=== PATIENT | female | born 1960 | race African-American/Black ===

== ENCOUNTER 2017-08-10 17:36 | Inpatient (IN) | payer MEDICAID ==
[~2017-08-10] VITALS: Ht 175.3 cm; Wt 76.2 kg
[~2017-08-10 17:36] MED LIST: IOHEXOL-300 100 ML BOTTLE ONE; SODIUM CHLORIDE 0.9% 10ML VIAL ONE
[2017-08-10] MEDS ORDERED: SODIUM CHLORIDE 0.9% 1,000 ML IV ONE (18:46)
[2017-08-10] MEDS ORDERED: ONDANSETRON HCL 4MG/2ML VIAL IV STA (18:46)
[2017-08-10] MEDS ORDERED: MORPHINE SULFATE 4 MG/ML CPJ (NOT FOR IM USE) IV STA (18:46)
[2017-08-10] MEDS ORDERED: SODIUM CHLORIDE 0.9% 1000ML BAG (SEPSIS BOLUS) IV ONE (19:15)
[2017-08-10] MEDS ORDERED: ACETAMINOPHEN 325MG SUPP PR ONE (19:15)
[2017-08-10 19:17] LABS: BASOPHILS % 0.9 % (0.0-2.0); EOSINOPHILS % 0.1 % (0.0-5.0); HEMATOCRIT. 41.8 % (36.0-48.0); HEMOGLOBIN. 14.1 g/dL (12.0-16.0); LYMPHOCYTES % 9.2 % (20.0-50.0); MEAN CORPUSCULAR HEMOGLOBIN 28.9 pg (28.0-32.0); MEAN CORPUSCULAR VOLUME 85.8 fL (81.0-99.0); MEAN PLATELET VOLUME 8.2 fl (7.4-10.4); MONOCYTES % 10.8 % (2.0-8.0); PLATELET 209 x1000/uL (130-400); RED BLOOD CELL COUNT 4.87 mill/uL (4.2-5.4); RED CELL DISTRIBUTION WIDTH 13.8 % (11.6-14.6)
[2017-08-10 19:19] LABS: INR 1.1; PROTHROMBIN TIME 11.7 sec (9.4-11.6)
[2017-08-10 19:27] LABS: CARBON DIOXIDE 29 mEq/L (21-32); CHLORIDE 103 mEq/L (98-107)
[2017-08-10] MEDS ORDERED: ACETAMINOPHEN 500MG TABLET PO ONE (20:15)
[2017-08-10] MEDS ORDERED: PIPERACILLIN/TAZ 3.375G PREMIX 50 ML IV ONE (20:15)
[2017-08-10] MEDS ORDERED: LEVOFLOXACIN 500MG PREMIX 100 ML IV ONE (22:15)
[2017-08-10] MEDS ORDERED: CEFTRIAXONE 1 G PREMIX 50 ML IV ONE (22:15)
[2017-08-10 22:22] LABS: CLARITY URINE CLEAR (CLEAR); COLOR URINE YELLOW (YELLOW); GLUCOSE URINE NEGATIVE (NEGATIVE); KETONES URINE NEGATIVE (NEGATIVE); LEUKOCYTE ESTERASE URINE 2+ (NEGATIVE); NITRITE URINE POSITIVE (NEGATIVE); OCCULT BLOOD URINE TRACE (NEGATIVE); PH URINE 5.5 (4.5-8.0); PROTEIN URINE NEGATIVE (NEGATIVE); SPECIFIC GRAVITY URINE 1.046 (1.005-1.030)
[2017-08-10] MEDS ORDERED: ZOLPIDEM TARTRATE 5MG TABLET PO PRN (23:15)
[2017-08-10] MEDS ORDERED: DIPHENHYDRAMINE 50MG/ML VIAL IV PRN (23:15)
[2017-08-10] MEDS ORDERED: MAGNESIUM/ALUMINUM HYDROXIDE/SIMETHICONE 30ML UDC PO PRN (23:15)
[2017-08-10] MEDS ORDERED: NA PHOS,M-B/NA PHOS,DI-BA ENEMA 118ML PR PRN (23:15)
[2017-08-10] MEDS ORDERED: DOCUSATE SODIUM 100MG CAPSULE PO PRN (23:15)
[2017-08-10] MEDS ORDERED: GUAIFENESIN 200MG/10ML SUGAR FREE UDC PO PRN (23:15)
[2017-08-10] MEDS ORDERED: LORAZEPAM 2MG/ML CPJ IV PRN (23:15)
[2017-08-10] MEDS ORDERED: CLONIDINE 0.1MG TABLET PO PRN (23:15)
[2017-08-10] MEDS ORDERED: IPRATROPIUM/ALBUTEROL 0.5-3(2.5)MG/3ML NEB INH PRN (23:15)
[2017-08-10] MEDS ORDERED: ONDANSETRON HCL 4MG/2ML VIAL IV PRN (23:15)
[2017-08-11] VITALS (8 sets, daily range): BP systolic 107–138; BP diastolic 68–93
[2017-08-11] MEDS: KETOROLAC 15MG/ML VIAL IV PRN ×2 (00:58→17:49)
[2017-08-11] MEDS ORDERED: CEFTRIAXONE 1 G PREMIX 50 ML IV SCH (02:00)
[2017-08-11] MEDS ORDERED: LEVOFLOXACIN 500MG PREMIX 100 ML IV SCH (03:00)
[2017-08-11 09:27] LABS: *AMPHETAMINES SCREEN URINE NEGATIVE (NEGATIVE); *BARBITURATES SCREEN URINE NEGATIVE (NEGATIVE); *BENZODIAZEPINES SCREEN URINE NEGATIVE (NEGATIVE); *COCAINE SCREEN URINE NEGATIVE (NEGATIVE); CANNABINOID URINE SCREEN NEGATIVE (NEGATIVE); METHADONE URINE SCREEN NEGATIVE (NEGATIVE); OPIATES URINE SCREEN PRESUMTIVE POSITIVE (NEGATIVE); PHENCYCLIDINE URINE SCREEN NEGATIVE (NEGATIVE)
[2017-08-11] MEDS: ENOXAPARIN 40MG/0.4ML SYR SUBCUT SCH (09:36)
[2017-08-11] MEDS: FAMOTIDINE 20MG/2ML VIAL IV SCH ×2 (09:36→22:08)
[2017-08-11] MEDS: METOPROLOL TARTRATE 25MG TABLET PO SCH ×2 (09:37→22:07)
[2017-08-11] MEDS: ACETAMINOPHEN 325MG TABLET PO PRN ×2 (12:18→22:08)
[2017-08-12] VITALS: BP 137/90
[2017-08-12] MEDS ORDERED: CEFTRIAXONE 1 G PREMIX 50 ML IV SCH (02:00)
[2017-08-12] MEDS: KETOROLAC 15MG/ML VIAL IV PRN (02:50)
[2017-08-12] MEDS ORDERED: LEVOFLOXACIN 500MG PREMIX 100 ML IV SCH (03:00)
[2017-08-12 06:13] VITALS: BP 127/77
[2017-08-12 08:00] VITALS: BP 139/92
[2017-08-12] MEDS: FAMOTIDINE 20MG/2ML VIAL IV SCH (09:00)
[2017-08-12] MEDS: METOPROLOL TARTRATE 25MG TABLET PO SCH (09:02)
[2017-08-12] MEDS: ENOXAPARIN 40MG/0.4ML SYR SUBCUT SCH (09:03)
[2017-08-12 11:37] VITALS: BP 132/72
== END 2017-08-12 12:28 | disposition home or self-care (01) | DRG 720 ==
LOC: ER 17:36 → 5WST 22:11 → EDBEDREQ 22:18 → EDBEDREQSVC 22:20 → ENRESERV 22:46
PROVIDERS: ADMIT Internal Medicine; ATTEND Internal Medicine
DX: A41.9 Sepsis, unspecified organism (principal); E44.1 Mild protein-calorie malnutrition; I10 Essential (primary) hypertension; N12 Tubulo-interstitial nephritis, not specified as acute or chronic; K21.9 Gastro-esophageal reflux disease without esophagitis; Z72.89 Other problems related to lifestyle; Z68.24 Body mass index [BMI] 24.0-24.9, adult; J44.1 Chronic obstructive pulmonary disease with (acute) exacerbation
CPT/HCPCS: 36415; 71010; 74177; 80053; 80305; 81001; 83036; 83605; 83690; 85025; 85610; 87040; 87086; 93005; 96361; 96374; 96375; 99285; A4216; A6261; J0696; J1650; J1885; J1956; J2270; J2405; J2543; J3490; J7030; Q9967

== ENCOUNTER 2017-12-18 16:12 | Emergency (ER) | payer MEDICAID ==
[~2017-12-18] VITALS: Ht 172.7 cm; Wt 73.0 kg
[2017-12-18 18:26] VITALS: BP 152/100
[2017-12-18 18:58] LABS: BASOPHILS % 1.1 % (0.0-2.0); EOSINOPHILS % 1.6 % (0.0-5.0); HEMATOCRIT. 38.4 % (36.0-48.0); HEMOGLOBIN. 12.9 g/dL (12.0-16.0); LYMPHOCYTES % 30.4 % (20.0-50.0); MEAN CORPUSCULAR HEMOGLOBIN 28.3 pg (28.0-32.0); MEAN CORPUSCULAR VOLUME 84.5 fL (81.0-99.0); MEAN PLATELET VOLUME 7.7 fl (7.4-10.4); MONOCYTES % 19.7 % (2.0-8.0); NEUTROPHILS % 47.2 % (40.0-76.0); PLATELET 263 x1000/uL (130-400); RED BLOOD CELL COUNT 4.55 mill/uL (4.2-5.4); RED CELL DISTRIBUTION WIDTH 14.2 % (11.6-14.6)
[2017-12-18 19:05] LABS: CHLORIDE 109 mEq/L (98-107); PROTHROMBIN TIME 10.6 sec (9.4-11.6)
[2017-12-18 20:16] LABS: CLARITY URINE CLEAR (CLEAR); COLOR URINE YELLOW (YELLOW); KETONES URINE NEGATIVE (NEGATIVE); LEUKOCYTE ESTERASE URINE TRACE (NEGATIVE); NITRITE URINE POSITIVE (NEGATIVE); OCCULT BLOOD URINE NEGATIVE (NEGATIVE); PROTEIN URINE NEGATIVE (NEGATIVE); SPECIFIC GRAVITY URINE 1.015 (1.005-1.030); UROBILINOGEN URINE 0.2 E.U./dL (0.2-1.0)
== END 2017-12-18 21:04 | disposition home or self-care (01) ==
LOC: ER 16:16
DX: N39.0 Urinary tract infection, site not specified (principal); I10 Essential (primary) hypertension; J44.9 Chronic obstructive pulmonary disease, unspecified; K21.9 Gastro-esophageal reflux disease without esophagitis
CPT/HCPCS: 36415; 76705; 80053; 81001; 83605; 83690; 85025; 85610; 93005; 99285; Z7610

== ENCOUNTER 2020-10-01 12:28 | Inpatient (IN) | payer MEDICAID ==
[~2020-10-01] VITALS: Ht 175.3 cm; Wt 80.7 kg
[2020-10-01] MEDS ORDERED: SODIUM CHLORIDE 0.9% 1,000 ML IV ONE (13:15)
[2020-10-01 14:05] LABS: BASOPHILS % 1.1 % (0.0-2.0); HEMATOCRIT. 37.5 % (36.0-48.0); HEMOGLOBIN. 12.1 g/dL (12.0-16.0); LYMPHOCYTES % 14.6 % (20.0-50.0); MEAN CORPUSCULAR HEMOGLOBIN 25.1 pg (28.0-32.0); MEAN CORPUSCULAR VOLUME 77.8 fL (81.0-99.0); MEAN PLATELET VOLUME 7.6 fl (7.4-10.4); MONOCYTES % 3.9 % (2.0-8.0); NEUTROPHILS % 80.4 % (40.0-76.0); PLATELET 254 x1000/uL (130-400); RED BLOOD CELL COUNT 4.82 mill/uL (4.2-5.4); RED CELL DISTRIBUTION WIDTH 20.9 % (11.6-14.6)
[2020-10-01 14:12] LABS: CHLORIDE 113 mEq/L (98-107)
[2020-10-01 14:24] LABS: ETHANOL BLOOD 384 mg/dL
[2020-10-01] MEDS ORDERED: GUAIFENESIN 200MG/10ML SUGAR FREE UDC PO PRN (17:45)
[2020-10-01] MEDS ORDERED: DOCUSATE SODIUM 100MG CAPSULE PO PRN (17:45)
[2020-10-01] MEDS ORDERED: IPRATROPIUM/ALBUTEROL 0.5-3(2.5)MG/3ML NEB NEB PRN (17:45)
[2020-10-01] MEDS ORDERED: MAGNESIUM/ALUMINUM HYDROXIDE/SIMETHICONE 30ML UDC PO PRN (17:45)
[2020-10-01] MEDS ORDERED: NITROGLYCERIN 0.4MG TABLET SL SL PRN (17:45)
[2020-10-01] MEDS ORDERED: ACETAMINOPHEN 325MG TABLET PO PRN ×2 (17:45)
[2020-10-01] MEDS ORDERED: ENOXAPARIN 40MG/0.4ML SYR SUBCUT SCH (18:15)
[2020-10-01] MEDS ORDERED: MVI, ADULT NO.1 10 ML, FOLIC ACID 1 MG, THIAMINE HCL 100 MG in SODIUM CHLORIDE 0.9% 1,0... IV NR ×4 (18:30)
[2020-10-01 18:54] LABS: T4 FREE 0.86 ng/dL (0.76-1.46)
[2020-10-01 19:08] LABS: FOLIC ACID (FOLATE) SERUM 4.9 ng/mL (>5.38)
[2020-10-01] MEDS: KETOROLAC 15MG/ML VIAL IV PRN (19:14)
[2020-10-01] MEDS: DILTIAZEM HCL 60MG TABLET PO SCH (19:24)
[2020-10-01] MEDS: ASCORBIC ACID 500 MG TABLET PO SCH (20:49)
[2020-10-01] MEDS: CLONIDINE 0.1MG TABLET PO PRN (20:50)
[2020-10-01 22:40] VITALS: BP 144/93
[2020-10-01 23:00] VITALS: BP 144/93
[2020-10-01] MEDS ORDERED: AMLO10TA80 PO (23:45)
[2020-10-01] MEDS ORDERED: PANT40TA4 PO (23:46)
[2020-10-01] MEDS ORDERED: HYDR25TA PO (23:47)
[2020-10-02] VITALS: BP 143/93
[2020-10-02] MEDS: DILTIAZEM HCL 60MG TABLET PO SCH ×4 (00:23→16:48)
[2020-10-02] MEDS: FAMOTIDINE 20MG TABLET PO SCH ×3 (00:23→21:04)
[2020-10-02] MEDS: TRAMADOL 50MG TABLET PO PRN ×2 (00:24→21:04)
[2020-10-02] MEDS: PIPERACILLIN/TAZOBACTAM 3.375 G in DEXT 5% WATER 100 ML IV SCH ×4 (00:25→16:48)
[2020-10-02] MEDS: ZOLPIDEM TARTRATE 5MG TABLET PO PRN ×2 (01:16→21:46)
[2020-10-02] MEDS: ONDANSETRON HCL 4MG/2ML INJ IV PRN ×2 (01:33→21:49)
[2020-10-02 04:00] VITALS: BP 129/87
[2020-10-02 04:37] LABS: *AMPHETAMINES SCREEN URINE NEGATIVE (NEGATIVE); *BARBITURATES SCREEN URINE NEGATIVE (NEGATIVE)
[2020-10-02 04:38] LABS: *BENZODIAZEPINES SCREEN URINE NEGATIVE (NEGATIVE); *COCAINE SCREEN URINE NEGATIVE (NEGATIVE); CANNABINOID URINE SCREEN NEGATIVE (NEGATIVE); METHADONE URINE SCREEN NEGATIVE (NEGATIVE); OPIATES URINE SCREEN NEGATIVE (NEGATIVE); PHENCYCLIDINE URINE SCREEN NEGATIVE (NEGATIVE)
[2020-10-02 07:02] LABS: BASOPHILS % 0.9 % (0.0-2.0); HEMATOCRIT. 31.7 % (36.0-48.0); HEMOGLOBIN. 10.4 g/dL (12.0-16.0); LYMPHOCYTES % 12.4 % (20.0-50.0); MEAN CORPUSCULAR HEMOGLOBIN 25.2 pg (28.0-32.0); MEAN PLATELET VOLUME 8.3 fl (7.4-10.4); MONOCYTES % 8.9 % (2.0-8.0); NEUTROPHILS % 77.8 % (40.0-76.0); PLATELET 217 x1000/uL (130-400); RED BLOOD CELL COUNT 4.11 mill/uL (4.2-5.4); RED CELL DISTRIBUTION WIDTH 20.3 % (11.6-14.6)
[2020-10-02 07:22] LABS: CHLORIDE 108 mEq/L (98-107)
[2020-10-02 07:28] LABS: PHOSPHORUS 3.3 mg/dL (2.5-4.9)
[2020-10-02] MEDS: ZINC SULFATE 220 MG ( 50 ) CAPSULE PO SCH (07:55)
[2020-10-02] MEDS: ASCORBIC ACID 500 MG TABLET PO SCH ×2 (07:55→21:03)
[2020-10-02] MEDS: FOLIC ACID 1MG TABLET PO SCH (07:55)
[2020-10-02 08:00] VITALS: BP 144/94
[2020-10-02] MEDS: KETOROLAC 15MG/ML VIAL IV PRN ×2 (08:03→16:48)
[2020-10-02] MEDS ORDERED: MAGNESIUM 4 G PREMIX 100 ML IV ONE (11:00)
[2020-10-02 11:54] VITALS: BP 150/89
[2020-10-02] MEDS ORDERED: PNEUMOCOCCAL 23-VAL P-SAC VAC 0.5 ML IM ONE (12:00)
[2020-10-02] MEDS ORDERED: INFLUENZA VACCINE 05/PF 0.5 ML VIAL IM ONE (12:00)
[2020-10-02] MEDS: CHLORDIAZEPOXIDE 10MG CAPSULE PO SCH ×2 (13:04→21:03)
[2020-10-02 16:00] VITALS: BP 137/90
[2020-10-02] MEDS: ENOXAPARIN 40MG/0.4ML SYR SUBCUT SCH (16:47)
[2020-10-02 20:00] VITALS: BP 139/84
[2020-10-02] MEDS: LORAZEPAM 2MG/ML CPJ IV PRN (21:46)
[2020-10-03] VITALS: BP 133/88
[2020-10-03] MEDS: PIPERACILLIN/TAZOBACTAM 3.375 G in DEXT 5% WATER 100 ML IV SCH ×5 (01:36→23:31)
[2020-10-03] MEDS: DILTIAZEM HCL 60MG TABLET PO SCH ×5 (01:37→23:31)
[2020-10-03 04:00] VITALS: BP 147/103
[2020-10-03] MEDS: CHLORDIAZEPOXIDE 10MG CAPSULE PO SCH ×3 (06:27→21:40)
[2020-10-03 08:00] VITALS: BP 143/101
[2020-10-03] MEDS: ASCORBIC ACID 500 MG TABLET PO SCH ×2 (08:08→20:38)
[2020-10-03] MEDS: ZINC SULFATE 220 MG ( 50 ) CAPSULE PO SCH (08:08)
[2020-10-03] MEDS: FAMOTIDINE 20MG TABLET PO SCH ×2 (08:08→20:38)
[2020-10-03] MEDS: FOLIC ACID 1MG TABLET PO SCH (08:08)
[2020-10-03] MEDS: ENOXAPARIN 40MG/0.4ML SYR SUBCUT SCH (08:09)
[2020-10-03] MEDS: CLONIDINE 0.1MG TABLET PO PRN (08:16)
[2020-10-03] MEDS: KETOROLAC 15MG/ML VIAL IV PRN (11:08)
[2020-10-03 12:00] VITALS: BP 137/96
[2020-10-03] MEDS: ONDANSETRON HCL 4MG/2ML INJ IV PRN (13:08)
[2020-10-03 16:00] VITALS: BP 130/91
[2020-10-03 20:00] VITALS: BP 134/89
[2020-10-03] MEDS: ZOLPIDEM TARTRATE 5MG TABLET PO PRN (21:40)
[2020-10-04] VITALS (7 sets, daily range): BP systolic 112–135; BP diastolic 71–95
[2020-10-04] MEDS: CHLORDIAZEPOXIDE 10MG CAPSULE PO SCH (06:13)
[2020-10-04] MEDS: DILTIAZEM HCL 60MG TABLET PO SCH ×3 (06:13→17:36)
[2020-10-04] MEDS: PIPERACILLIN/TAZOBACTAM 3.375 G in DEXT 5% WATER 100 ML IV SCH ×3 (06:14→17:36)
[2020-10-04] MEDS: ZINC SULFATE 220 MG ( 50 ) CAPSULE PO SCH (08:01)
[2020-10-04] MEDS: CLONIDINE 0.1MG TABLET PO PRN (08:01)
[2020-10-04] MEDS: ASCORBIC ACID 500 MG TABLET PO SCH ×2 (08:01→20:52)
[2020-10-04] MEDS: FOLIC ACID 1MG TABLET PO SCH (08:01)
[2020-10-04] MEDS: ENOXAPARIN 40MG/0.4ML SYR SUBCUT SCH (08:01)
[2020-10-04] MEDS: FAMOTIDINE 20MG TABLET PO SCH ×2 (08:01→20:52)
[2020-10-04] MEDS: KETOROLAC 15MG/ML VIAL IV PRN (08:03)
[2020-10-04] MEDS: CARVEDILOL 3.125 MG TABLET PO SCH ×2 (09:00→20:53)
[2020-10-04] MEDS: MULTIVITAMINS,THER W-MINERALS TABLET PO SCH (09:15)
[2020-10-04] MEDS: THIAMINE HCL 100MG TABLET PO SCH (09:15)
[2020-10-04] MEDS ORDERED: CHLORDIAZEPOXIDE 10MG CAPSULE PO SCH (14:00)
[2020-10-04] MEDS: TRAMADOL 50MG TABLET PO PRN (20:53)
[2020-10-04] MEDS: CHLORDIAZEPOXIDE 5 MG CAPSULE PO SCH (21:00)
[2020-10-04] MEDS: ZOLPIDEM TARTRATE 5MG TABLET PO PRN (22:20)
[2020-10-05] VITALS: BP 109/76
[2020-10-05] MEDS: PIPERACILLIN/TAZOBACTAM 3.375 G in DEXT 5% WATER 100 ML IV SCH ×5 (00:23→23:59)
[2020-10-05 04:00] VITALS: BP 113/71
[2020-10-05] MEDS: CHLORDIAZEPOXIDE 5 MG CAPSULE PO SCH ×3 (05:07→20:31)
[2020-10-05] MEDS: DILTIAZEM HCL 60MG TABLET PO SCH ×4 (05:08→17:00)
[2020-10-05 08:00] VITALS: BP_SYST 102; BP_SYST 144; BP_DIAS 61; BP_DIAS 72; BP_DIAS 77
[2020-10-05] MEDS: KETOROLAC 15MG/ML VIAL IV PRN ×2 (08:18→16:55)
[2020-10-05] MEDS: THIAMINE HCL 100MG TABLET PO SCH (08:21)
[2020-10-05] MEDS: ZINC SULFATE 220 MG ( 50 ) CAPSULE PO SCH (08:21)
[2020-10-05] MEDS: ASCORBIC ACID 500 MG TABLET PO SCH ×2 (08:21→20:30)
[2020-10-05] MEDS: FAMOTIDINE 20MG TABLET PO SCH ×2 (08:21→20:31)
[2020-10-05] MEDS: CARVEDILOL 3.125 MG TABLET PO SCH ×2 (08:21→20:30)
[2020-10-05] MEDS: ENOXAPARIN 40MG/0.4ML SYR SUBCUT SCH (08:21)
[2020-10-05] MEDS: FOLIC ACID 1MG TABLET PO SCH (08:21)
[2020-10-05] MEDS: MULTIVITAMINS,THER W-MINERALS TABLET PO SCH (08:21)
[2020-10-05] MEDS: LORAZEPAM 2MG/ML CPJ IV PRN ×2 (11:31→20:31)
[2020-10-05 11:51] VITALS: BP 122/84
[2020-10-05 16:00] VITALS: BP 115/76
[2020-10-05 20:00] VITALS: BP 100/68
[2020-10-06] VITALS: BP 128/77
[2020-10-06] MEDS: ZOLPIDEM TARTRATE 5MG TABLET PO PRN (00:10)
[2020-10-06 04:00] VITALS: BP 116/79
[2020-10-06] MEDS: KETOROLAC 15MG/ML VIAL IV PRN ×2 (05:07→12:56)
[2020-10-06] MEDS: DILTIAZEM HCL 60MG TABLET PO SCH ×4 (05:07→18:00)
[2020-10-06] MEDS: PIPERACILLIN/TAZOBACTAM 3.375 G in DEXT 5% WATER 100 ML IV SCH ×3 (05:07→18:00)
[2020-10-06] MEDS: CHLORDIAZEPOXIDE 5 MG CAPSULE PO SCH (05:20)
[2020-10-06 06:18] LABS: BASOPHILS % 0.3 % (0.0-2.0); EOSINOPHILS % 1.5 % (0.0-5.0); HEMATOCRIT. 33.6 % (36.0-48.0); HEMOGLOBIN. 10.9 g/dL (12.0-16.0); LYMPHOCYTES % 12.1 % (20.0-50.0); MEAN CORPUSCULAR HEMOGLOBIN 25.5 pg (28.0-32.0); MEAN CORPUSCULAR VOLUME 78.7 fL (81.0-99.0); MEAN PLATELET VOLUME 8.1 fl (7.4-10.4); NEUTROPHILS % 76.1 % (40.0-76.0); PLATELET 240 x1000/uL (130-400); RED BLOOD CELL COUNT 4.28 mill/uL (4.2-5.4); RED CELL DISTRIBUTION WIDTH 20.7 % (11.6-14.6)
[2020-10-06 08:00] VITALS: BP 130/81
[2020-10-06 08:18] LABS: CHLORIDE 107 mEq/L (98-107)
[2020-10-06 08:26] LABS: PHOSPHORUS 3.6 mg/dL (2.5-4.9)
[2020-10-06] MEDS: THIAMINE HCL 100MG TABLET PO SCH (09:22)
[2020-10-06] MEDS: FAMOTIDINE 20MG TABLET PO SCH (09:22)
[2020-10-06] MEDS: ASCORBIC ACID 500 MG TABLET PO SCH (09:22)
[2020-10-06] MEDS: MULTIVITAMINS,THER W-MINERALS TABLET PO SCH (09:22)
[2020-10-06] MEDS: ZINC SULFATE 220 MG ( 50 ) CAPSULE PO SCH (09:22)
[2020-10-06] MEDS: CARVEDILOL 3.125 MG TABLET PO SCH (09:22)
[2020-10-06] MEDS: FOLIC ACID 1MG TABLET PO SCH (09:22)
[2020-10-06] MEDS: ENOXAPARIN 40MG/0.4ML SYR SUBCUT SCH (09:23)
[2020-10-06 12:00] VITALS: BP 130/88
[2020-10-06 16:00] VITALS: BP 126/92
[2020-10-06 16:58] VITALS: BP 126/92
== END 2020-10-06 18:05 | disposition home health service (06) | DRG 342 ==
LOC: ER 12:28 → 5WST 17:17 → EDBEDREQTM 17:22 → EDBEDREQ 17:22 → ENRESERV 20:29
PROVIDERS: ADMIT Internal Medicine; ATTEND Internal Medicine
DX: S42.301A Unspecified fracture of shaft of humerus, right arm, initial encounter for closed fracture (principal); G92 Toxic encephalopathy; J69.0 Pneumonitis due to inhalation of food and vomit; F10.129 Alcohol abuse with intoxication, unspecified; R74.01 Elevation of levels of liver transaminase levels; E83.51 Hypocalcemia; F17.200 Nicotine dependence, unspecified, uncomplicated; J44.9 Chronic obstructive pulmonary disease, unspecified; K21.9 Gastro-esophageal reflux disease without esophagitis; I10 Essential (primary) hypertension; Y90.9 Presence of alcohol in blood, level not specified; D52.9 Folate deficiency anemia, unspecified; W18.39XA Other fall on same level, initial encounter; E66.9 Obesity, unspecified; E87.6 Hypokalemia; E83.42 Hypomagnesemia; Z68.26 Body mass index [BMI] 26.0-26.9, adult; Y93.89 Activity, other specified; Y92.89 Other specified places as the place of occurrence of the external cause; Y99.8 Other external cause status; F10.139 Alcohol abuse with withdrawal, unspecified
CPT/HCPCS: 36415; 71045; 73060; 73080; 80053; 80305; 80320; 82607; 82746; 83036; 83540; 83550; 83735; 84100; 84439; 84443; 85025; 90686; 90732; 93970; 97162; 97166; 97530; 97535; 99285; A6261; C1893; J1650; J1885; J2060; J2405; J2543; J3411; J3475; J3490; J7030; J7060; G0480